=== PATIENT | female | born 1945 | race Caucasian/White ===

== ENCOUNTER 2020-02-20 07:43 | Emergency (ER) | payer BC ==
[~2020-02-20] VITALS: Ht 175.3 cm; Wt 78.9 kg
[~2020-02-20 07:43] MED LIST: ANTIVERT25 MG PO; CLARITIN10 MG PO; JANTOVEN6 MG PO
[2020-02-20] MEDS ORDERED: JANTOVEN5 MG PO (07:47)
[2020-02-20 08:08] LABS: HEMATOCRIT 40.4 % (37.0-47.0); HEMOGLOBIN 13.7 gm/dL (12.0-15.0); MCH 29.6 pg (26.0-34.0); MCHC 33.9 g/dL (28.0-37.0); MCV 87.5 fL (80.0-100.0); MPV 8.2 fl. (7.2-11.1); NUCLEATED RBCS 0 /100WBC; PLATELET COUNT* 218 thou/uL (150-400); RBC 4.62 mil/uL (4.20-5.00); RDW-CV 15.2 % (10.5-14.5); WBC 7.2 thou/uL (4.0-11.0)
[2020-02-20 08:14] LABS: CALCIUM 8.9 mg/dL (8.5-10.1); CREATININE 0.8 mg/dL (0.6-1.3); POTASSIUM 3.8 mmol/L (3.5-5.1)
[2020-02-20 08:17] LABS: ALBUMIN 3.8 g/dL (3.4-5.0); MAGNESIUM 1.9 mg/dL (1.8-2.4); TOTAL BILIRUBIN 0.7 mg/dL (<0.1-1.0); TOTAL PROTEIN 6.9 g/dL (6.4-8.2)
[2020-02-20 08:18] LABS: APTT 36.5 Seconds (25.0-31.3); PROTIME 20.8 Seconds (9.20-11.50)
[2020-02-20 09:12] LABS: ABSOLUTE LYMPHOCYTES 0.4 thou/uL (0.8-5.3); ABSOLUTE MONOCYTES 0.3 thou/uL (0.0-1.2); ABSOLUTE NEUTROPHILS 6.5 thou/uL (1.6-8.1); ANISOCYTOSIS 1+; PLATELET ESTIMATE ADEQUATE; POIKILOCYTOSIS 1+
[2020-02-20] MEDS ORDERED: TESSALON PERLE100 M1 PO (10:56)
[2020-02-20 11:14] VITALS: BP 161/81
--- NOTE | 2020-02-20 13:40 | EKG ---
[place] [address] ELECTROCARDIOGRAM REPORT Name: JANELLEWARREN Room: [facility]#: [id number] Admission: 02/20/20 Attend Phys: Discharge: 02/20/20 Date of : 43 Date of Service: 02/20/20 0751 Report #: [id number] THIS REPORT FOR: //name// [facility] ED Test Date: 2020-02-20 Test Time: 07:51:31 Pat Name: WARREN LUIS Department: Room: Gender: Ore Feeder: [facility] : 1945 Requested By: Fidel Garay Order Number: [id number] MD: Thai Wynn Measurements Intervals [place] Rate: 104 P: 14 IA: 158 QRS: -34 QRSD: 90 T: 17 QT: 333 QTc: 438 Interpretive Statements Sinus tachycardia Inferior infarct, old Consider anterior infarct Compared to ECG 06/03/2016 04:55:53 Myocardial infarct finding now present Sinus rhythm no longer present Electronically Signed On 02-20-2020 13:40:30 RESIDENTIAL TEAM LEADER by Thai Wynn [email or web address] <ELECTRONICALLY SIGNED> By: Thai Wynn MD, FACC 02/20/20 1340 0751 0751 Thai Wynn MD, [facility] /EPI
== END 2020-02-20 11:16 | disposition home or self-care (01) ==
LOC: M.ERS 07:43
PROVIDERS: Emergency Medicine Emergency Medical Services
DX: R00.2 Palpitations (principal); Z90.49 Acquired absence of other specified parts of digestive tract; Z90.710 Acquired absence of both cervix and uterus; Z79.01 Long term (current) use of anticoagulants; Z79.899 Other long term (current) drug therapy; Z88.5 Allergy status to narcotic agent

== ENCOUNTER 2020-03-19 08:51 | Observation (INO) | payer BC ==
[~2020-03-19] VITALS: Ht 175.3 cm; Wt 77.6 kg
[~2020-03-19 08:51] MED LIST changes: +JANTOVEN5 MG PO; +TESSALON PERLE100 M1 PO
[2020-03-19 08:52] VITALS: BP 146/88
[2020-03-19 09:48] LABS: HEMATOCRIT 41.8 % (37.0-47.0); MCH 29.5 pg (26.0-34.0); MCHC 33.4 g/dL (28.0-37.0); MCV 88.4 fL (80.0-100.0); NUCLEATED RBCS 0 /100WBC; PLATELET COUNT* 189 thou/uL (150-400); RBC 4.73 mil/uL (4.20-5.00); RDW-CV 15.3 % (10.5-14.5); WBC 5.9 thou/uL (4.0-11.0)
[2020-03-19 09:58] LABS: CALCIUM 7.8 mg/dL (8.5-10.1); CREATININE 0.7 mg/dL (0.6-1.3); POTASSIUM 4.1 mmol/L (3.5-5.1)
[2020-03-19 10:01] LABS: URINE BILIRUBIN NEGATIVE (Negative); URINE BLOOD TRACE (Negative); URINE CLARITY CLEAR; URINE COLOR YELLOW; URINE GLUCOSE-RANDOM NEGATIVE (Negative); URINE KETONES NEGATIVE (Negative); URINE LEUKOCYTES-REFLEX NEGATIVE (Negative); URINE NITRITE-REFLEX NEGATIVE (Negative); URINE PROTEIN NEGATIVE (Negative); URINE UROBILINOGEN 0.2 E.U./dl (0.2-1.0)
[2020-03-19 10:01] LABS: ALBUMIN 3.6 g/dL (3.4-5.0); TOTAL BILIRUBIN 0.6 mg/dL (<0.1-1.0); TOTAL PROTEIN 6.7 g/dL (6.4-8.2)
[2020-03-19 10:12] LABS: ABSOLUTE LYMPHOCYTES 0.4 thou/uL (0.8-5.3); ABSOLUTE MONOCYTES 0.1 thou/uL (0.0-1.2); ABSOLUTE NEUTROPHILS 5.5 thou/uL (1.6-8.1); PLATELET ESTIMATE ADEQUATE
[2020-03-19 10:33] LABS: APTT 40.8 Seconds (25.0-31.3); INR 2.4; PROTIME 24.4 Seconds (9.20-11.50)
--- NOTE | 2020-03-19 10:41 | NUR ---
TANIKA NOTIFIED UPON PT RETURN FROM CT. PT CONNECTED TO MONITOR
[2020-03-19 15:15] VITALS: BP 149/67
[2020-03-19 16:00] VITALS: BP 157/79
--- NOTE | 2020-03-19 16:15 | EKG ---
[place] [address] ELECTROCARDIOGRAM REPORT Name: JANELLEWARREN Room: [address]#: [id number] Admission: 03/19/20 Attend Phys: Jacek Rivera Discharge: Date of : 43 Date of Service: 03/19/20 0856 Report #: [id number] THIS REPORT FOR: //name// [facility] ED Test Date: 2020-03-19 Test Time: 08:56:34 Pat Name: WARREN LUIS Department: Room: [facility] Gender: F [employer] Roller: WILMER : 1945 Requested By: Fidel Garay Order Number: [id number] MD: Los Lopez Measurements Intervals [place] Rate: 105 P: 1 [place]: 157 QRS: -36 QRSD: 87 T: 19 QT: 324 QTc: 429 Interpretive Statements Sinus tachycardia Inferior infarct, old Compared to ECG 02/20/2020 07:51:31 No significant changes Electronically Signed On 03-19-2020 16:15:10 LINUX ADMIN ENGINEER by Los Lopez [email or web address] <ELECTRONICALLY SIGNED> By: Los Lopez MD, [facility] 03/19/20 1615 0856 0856 Los Lopez MD, [facility] /EPI
--- NOTE | 2020-03-19 21:10 | NUR ---
I ASSUMED CARE OF THE PATIENT AN ADMISSION FROM THE ED AT 1600. SHE IS ALERT AND ORIENTED X4 AND IS UP WITH SBA. BED IS IN THE LOW LOCKED POSITION AND CALL LIGHT IS IN REACH. HOURLY ROUNDING IS COMPLETED AND PATIENT NEEDS ARE MET. PAIN IS DENIED. ADMISSION IS COMPLETED, INCLUDING MED REC, PHARMACY AND ALLERGIES. NO N/V ON MY SHIFT. SHE WAS ABLE TO VOID IN THE BATHROOM. WILL CONTINUE TO MONITOR.
[2020-03-20] VITALS: BP 156/76
--- NOTE | 2020-03-20 05:39 | NUR ---
PATIENT REFUSED TO WEAR MICROBIOLOGY LAB ASSISTANT THROUGH NOC. STATING THAT SHE DOESN'T HAVE HEART PROBLEMS. ATTEMPTED TO EDUCATE PATIEN ABOUT REASON TO MONITOR HER. PATIENT CONTINUED TO REFUSE AND NOT ALLOW NURSE TO PLACE HEART MONITOR ON.
[2020-03-20 08:00] VITALS: BP 136/53
[2020-03-20] MEDS ORDERED: ONDANSETRON HCL4 M2 PO (09:42)
[2020-03-20] MEDS ORDERED: METOPROLOL TART25 MG PO (09:42)
[2020-03-20 09:57] VITALS: BP 136/53
[2020-03-20 12:00] VITALS: BP 131/61
--- NOTE | 2020-03-20 14:09 | NUR ---
RECEIVED REPORT AROUND 0715. ASSUMED CARE. IV INTACT RIGHT AC. HEART MONITOR ATTACHED AT SA WITH PVC'S. PT STATED "NO" TO ANY PAIN. MEDS GIVEN PER MAR. HOURLY ROUNDING PERFORMED. VS AND ASSESSMENT CHARTED. DISCHARGE ORDERS PUT IN. IV TAKEN OUT. HEART MONITOR OFF. DISCHARGE PAPER WORK GIVEN TO PT. COMMUNICATED UNDERSTANDING. PT LEFT UNIT WITH NURSING STAFF AND ALL BELONGINGS VIA WHEEL CHAIR AT 1350.
== END 2020-03-20 13:50 | disposition home or self-care (01) ==
LOC: M.ERS 08:51 → M.TBA-ER 12:17 → M.2W 15:35
PROVIDERS: Emergency Medicine Emergency Medical Services; ADMIT Internal Medicine; ATTEND Internal Medicine
DX: R10.11 Right upper quadrant pain (principal); R55 Syncope and collapse; R00.0 Tachycardia, unspecified; I10 Essential (primary) hypertension; D68.69 Other thrombophilia; D68.61 Antiphospholipid syndrome; Z20.828 Contact with and (suspected) exposure to other viral communicable diseases; Z79.899 Other long term (current) drug therapy